=== PATIENT | female | born 2000 | race Caucasian/White ===

== ENCOUNTER 2021-07-07 19:45 | Emergency (ER) | payer MEDICAID, SELFPAY ==
[2021-07-07 20:08] VITALS: BP 156/111; PULSE 107; RESP 18; TEMP 36.9; O2SAT 97; BMI 29.0
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
== END 2021-07-07 20:50 | disposition home or self-care (01) ==
PROVIDERS: Emergency Provider Emergency Medicine Emergency Medical Services
DX: R51.9 Headache, unspecified (principal)
CPT/HCPCS: 99282; 99283